=== PATIENT | male | born 1955 | race African-American/Black ===

== ENCOUNTER 2016-07-12 12:32 | Emergency (ER) | payer MEDICAID, OTHER ==
[~2016-07-12] VITALS: Ht 172.7 cm; Wt 99.3 kg
[~2016-07-12 12:32] MED LIST: NORCO 5-325 TA1 EAC1 ORAL; PROMETHAZINE-C118 M1 ORAL; TAMIFLU75 MG ORAL
[2016-07-12 13:03] VITALS: BP 132/82
[2016-07-12] MEDS ORDERED: LISINOPRIL20 MG ORAL (13:09)
[2016-07-12] MEDS ORDERED: SIMVASTATIN20 MG ORAL (13:09)
[2016-07-12] MEDS ORDERED: ASPIRIN81 MG ORAL (13:09)
[2016-07-12] MEDS ORDERED: PRILOSEC OTC20 MG ORAL (13:10)
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
[2016-07-12] MEDS ORDERED: TYLENOL EXTRA500 MG ORAL (13:49)
[2016-07-12 14:10] VITALS: BP 132/82
== END 2016-07-12 14:10 | disposition home or self-care (01) ==
LOC: EMR 13:46
DX: S40.852A Superficial foreign body of left upper arm, initial encounter (principal); Z18.9 Retained foreign body fragments, unspecified material; V49.9XXD Car occupant (driver) (passenger) injured in unspecified traffic accident, subsequent encounter; I10 Essential (primary) hypertension; E11.9 Type 2 diabetes mellitus without complications; X58.XXXA Exposure to other specified factors, initial encounter; Y92.9 Unspecified place or not applicable; Y99.8 Other external cause status
CPT/HCPCS: 99283

== ENCOUNTER 2016-12-07 19:56 | Emergency (ER) | payer OTHER ==
[~2016-12-07] VITALS: Ht 172.7 cm; Wt 98.4 kg
[~2016-12-07 19:56] MED LIST changes: +ASPIRIN81 MG ORAL; +LISINOPRIL20 MG ORAL; +PRILOSEC OTC20 MG ORAL; +SIMVASTATIN20 MG ORAL; +TYLENOL EXTRA500 MG ORAL
[2016-12-07] MEDS ORDERED: METFORMIN HCL1000 M1 ORAL (20:08)
[2016-12-07] MEDS ORDERED: IBUPROFEN600 MG ORAL (21:10)
--- NOTE | 2016-12-07 21:10 | Emergency Room Report ---
History of Present Illness General Chief Complaint: Pain Source: Patient Present Illness HPI 61 yo M no sig pmhx p/w L elbow pain. states that in June of this year he had a piece of glass stuck in the skin of his elbow. Pt states that he never removed it. now stating that x 2-3 days his L elbow has been bothering him, has gotten slightly swollen. he is able to move elbow however states pain with movement. denies any fever chills. Allergies: Coded Allergies: No Known Allergies (Unverified , 04/25/14) Patient History Past Medical History: see triage record Past Surgical History: none Pertinent Family History: none Reviewed Nursing Documentation: PMH: Agreed, PSxH: Agreed Nursing Documentation-PMH Past Medical History: No History, Except For Hx Hypertension: Yes Hx Diabetes: Yes - Type 2 Review of Systems All Other Systems: negative except mentioned in HPI Physical Exam Vital Signs Date Time Temp Pulse Resp B/P (MAP) Pulse Ox O2 Delivery O2 Flow Rate FiO2 12/07/16 20:00 97.5 87 16 121/79 98 Room Air Sp02 EP Interpretation: reviewed, normal General Appearance: normal inspection, well appearing, no apparent distress, alert, non-toxic Head: normocephalic, atraumatic Eyes: bilateral eye normal inspection, bilateral eye PERRL, bilateral eye EOMI ENT: normal ENT inspection, normal pharynx, normal voice, moist mucus membranes Neck: normal inspection, full range of motion, supple Respiratory: normal inspection, lungs clear, normal breath sounds, no respiratory distress, no retraction, no wheezing, speaking full sentences, chest symmetrical Cardiovascular #1: normal inspection, regular rate, rhythm, normal capillary refill Gastrointestinal: normal inspection, non tender, soft, non-distended, no guarding Genitourinary: no CVA tenderness Musculoskeletal: back normal, other - L elbow with mild swelling, no warmth, has full range of motion, no erythema Neurologic: normal inspection, alert, oriented x3, responsive, motor strength/ tone normal, sensory intact, normal gait, speech normal Psychiatric: normal inspection, judgement/insight normal, memory normal Skin: normal inspection, normal color, no rash, warm/dry, well hydrated, normal turgor Medical Decision Making Diagnostic Impression: Primary Impression: Foreign body of elbow, left, superficial ER Course 61 yo M with L elbow pain FB stuck back in june DDX: likely 2/2 to foreign body at this time not c/w septic joint as no fever, chills, no warmth to elbow, and elbow has FROM Plan: pain control XR ER course: XR performed which revealed FB seen in skin superficially pt given motrin with relief of pain Dispo Pt is to be discharged to home. Was instructed to follow up with a general surgeon for removal of FB. Instructed to return to ED if he has fever, chills, increased swelling, or inability to move elbow Last Vital Signs Date Time Temp Pulse Resp B/P (MAP) Pulse Ox O2 Delivery O2 Flow Rate FiO2 12/07/16 20:00 97.5 87 16 121/79 98 Room Air Disposition: HOME, SELF-CARE Condition: Improved Scripts Ibuprofen* (MOTRIN*) 600 Mg Tablet 600 MG ORAL Q8H Y for For Pain, #30 TAB 0 Refills Prov: Abbi Young M.D. 12/07/16 Additional Instructions: You have a foreign body in your left elbow. Please see a general surgeon for possible removal. Please return to the emergency room if you are having high fever chills increased swelling to the area or inability to move her elbow. Please take Motrin for pain. Abbi Young M.D. Dec 07, 2016 21:10
[2016-12-07 21:19] VITALS: BP 121/79
--- NOTE | 2016-12-08 11:36 | Diagnostic Imaging Report ---
Indication: Pain Findings: 3 views of the left elbow were obtained. There is no acute fracture or malalignment. There is trying other foreign body soft tissues of the posterior part of the elbow. Please correlate clinically. No joint effusion seen. Some marginal spurring noted at the elbow joint indicative of mild osteoarthritis. Impression: Posterior radiopaque foreign body. No acute fracture
== END 2016-12-07 21:19 | disposition home or self-care (01) ==
LOC: EMR 20:35
DX: S50.352A Superficial foreign body of left elbow, initial encounter (principal); W45.8XXA Other foreign body or object entering through skin, initial encounter; Y93.9 Activity, unspecified; Y92.9 Unspecified place or not applicable; I10 Essential (primary) hypertension; E11.9 Type 2 diabetes mellitus without complications
CPT/HCPCS: 99283

== ENCOUNTER 2017-04-14 12:08 | Emergency (ER) | payer OTHER ==
[~2017-04-14] VITALS: Ht 172.7 cm; Wt 97.5 kg
[~2017-04-14 12:08] MED LIST changes: +IBUPROFEN600 MG ORAL; +METFORMIN HCL1000 M1 ORAL
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
[2017-04-14] MEDS ORDERED: IBUPROFEN600 MG ORAL (14:06)
[2017-04-14 14:12] VITALS: BP 124/76
--- NOTE | 2017-04-15 11:02 | Diagnostic Imaging Report ---
Indication: Pain Technique: XRAY Ankle Compl Min 3v R Comparison: None Findings: There is bimalleolar soft tissue swelling, greater over the lateral malleolus. Irregularity of the tip of the medial malleolus with adjacent bony density which may represent a tiny chip fracture/avulsion fracture of the medial malleolus. The ankle mortise is intact on these nonstressed views. No ankle joint effusion is seen. Impression: Slight irregularity of the tip of the medial malleolus with adjacent ossific density may represent a small chip/avulsion fracture. Ankle mortise intact on these nonstress views. Correlate clinically.
--- NOTE | 2017-04-15 11:14 | Diagnostic Imaging Report ---
Indication: Pain Technique: XRAY Foot Complete R Comparison: None Findings: There is no acute fracture. There is mild hallux valgus with marked degenerative change at the first metatarsal phalangeal joint with joint space narrowing, subchondral sclerosis and projectives change. No definite bony erosion is seen. There is mild soft tissue swelling without definite mineralization in the soft tissues. Remainder of the joint spaces appear preserved. No radiopaque foreign body seen. Impression: No acute fracture. Mild hallux valgus with degenerative change at the first metatarsophalangeal joint with mild overlying soft tissue prominence. Findings are nonspecific and may be related to a number of arthritides (degenerative/depositional/inflammatory). Clinical correlation recommended.
== END 2017-04-14 14:15 | disposition home or self-care (01) ==
LOC: EMR 13:26
DX: S82.891A Other fracture of right lower leg, initial encounter for closed fracture (principal); I10 Essential (primary) hypertension; E11.9 Type 2 diabetes mellitus without complications; V29.88XA Motorcycle rider (driver) (passenger) injured in other specified transport accidents, initial encounter; Y92.488 Other paved roadways as the place of occurrence of the external cause
CPT/HCPCS: 29515; 99284

== ENCOUNTER 2018-02-11 19:12 | Emergency (ER) | payer OTHER ==
[~2018-02-11] VITALS: Ht 172.7 cm; Wt 101.2 kg
[2018-02-11 19:35] VITALS: BP 150/98
--- NOTE | 2018-02-11 19:47 | Emergency Room Report ---
History of Present Illness General Chief Complaint: Skin Rash/Abscess Source: Patient Present Illness HPI 62-year-old male patient presents ER complaining of a bug bite on his left arm for the past 2 days. Patient reports that he knows he was bit by a bug because he killed it. Reports bug was a "slow, flying black bug". States he does not know what kind of bug. Reports not a spider. reports does not believe up to date on tetanus shot. Reports did not take any medication pain. Reports no drainage. Reports pruritic and painful. Denies fever, chest pain, shortness of breath, vomiting. Denies history of diabetes. Denies contacts with similar symptoms. Reports no drainage from site of injury. Allergies: Coded Allergies: No Known Allergies (Unverified , 04/25/14) Patient History Past Medical History: see triage record Reviewed Nursing Documentation: PMH: Agreed; PSxH: Agreed Nursing Documentation-PMH Past Medical History: No History, Except For Hx Hypertension: Yes - lisinopril 20 mg Hx COPD: Yes Hx Diabetes: Yes - metformin, jenuva Review of Systems All Other Systems: negative except mentioned in HPI Physical Exam Vital Signs Date Time Temp Pulse Resp B/P (MAP) Pulse Ox O2 Delivery O2 Flow Rate FiO2 02/11/18 19:23 97.9 80 20 150/98 98 Room Air Sp02 EP Interpretation: reviewed, normal General Appearance: well appearing, no apparent distress, alert, GCS 15, non- toxic Head: normocephalic, atraumatic Eyes: bilateral eye normal inspection, bilateral eye PERRL ENT: hearing grossly normal, normal pharynx, no angioedema, normal voice, uvula midline, moist mucus membranes Respiratory: lungs clear, normal breath sounds, no rhonchi, no respiratory distress, no accessory muscle use, no wheezing, speaking full sentences Cardiovascular #1: regular rate, rhythm, no edema Cardiovascular #2: 2+ radial (R), 2+ radial (L) Musculoskeletal: back normal, digits/nails normal, gait/station normal, normal range of motion, non-tender Neurologic: alert, oriented x3, responsive, motor strength/tone normal, sensory intact Skin: other - left forearm: 2 cm area of erythema with mild edema consistent with cellulitis, no fluctuance, no drainage, no red streaking, no open wound, no target sign, no central clearing Medical Decision Making PA Attestation Dr. Clark is my supervising Physician whom patient management has been discussed with. Diagnostic Impression: Primary Impression: Cellulitis ER Course Pt. presents to the ED c/o bug bite. Ddx considered but are not limited to rash, cellulitis, abscess, atopic dermatitis, angioedema., allergic reaction, DVT, bug bite. Vital signs: are WNL, pt. is afebrile ER COURSE: Provided with TDAP and pain medication in the ER. physical exam consistent with cellulitis. No fluctuance or induration, no palpable mass consistent with abscess, does not require drainage at this time. ER precautions given. F/u with PCP in 2-3 days for wound check. Do not scratch or itch. Take Tylenol for pain symptoms. DISCHARGE: -Rx provided for Keflex -Rx provided for Hydrocrotisone Rx provided for Tylenol Rx provided for Bacitracin Rx provided for Hydrocortisone Rx provided for loratadine Rx provided for Benadryl At this time pt. is stable for d/c to home. Patient resting comfortably in no acute distress, nontoxic appearing. Will provide printed patient care instructions, and any necessary prescriptions. Patient instructed to complete current course of antibiotics. Care plan and follow up instructions have been discussed with the patient prior to discharge. Patient instructed to follow-up with primary care provider in 3 - 5 days and discuss further referral to mortuary beautician and vascular physician. Patient questions asked and answered. ER precautions given. Patient instructed to return to ER immediately for any new or worsening of symptoms including but not limited to increasing SOB, persistent fever, intractable vomiting, calf pain. - Please note that this Emergency Department Report was dictated using [employer] teacher technology software, occasionally this can lead to erroneous entry secondary to interpretation by the dictation equipment. Last Vital Signs Date Time Temp Pulse Resp B/P (MAP) Pulse Ox O2 Delivery O2 Flow Rate FiO2 02/11/18 19:35 97.9 77 20 150/98 98 Room Air Status: improved Disposition: HOME, SELF-CARE Condition: Stable Scripts Loratadine (LORATADINE) 10 Mg Tab.rapdis 10 MG PO DAILY, #30 TAB Prov: Saulo King 02/11/18 Hydrocortisone (Hydrocortisone Cream 2.5%) Y Cream.appl 1 APPLIC TP BID, #28 GM Prov: Saulo King.Maxwell 02/11/18 Diphenhydramine Hcl* (BENADRYL*) 25 Mg Capsule 25 MG ORAL Q6H PRN for Itching, #30 CAP Prov: Saulo King 02/11/18 Acetaminophen* (TYLENOL EXTRA STRENGTH*) 500 Mg Tablet 500 MG ORAL Q8H PRN for Prn Headache/Temp > 101, #30 TAB 0 Refills Prov: Saulo King 02/11/18 Cephalexin* (KEFLEX*) 500 Mg Capsule 500 MG ORAL EVERY 12 HOURS, #14 CAP 0 Refills Prov: Saulo King 02/11/18 Bacitracin/Polymyxin B Sulfate (BACITRACIN-POLYMYXIN OINTMENT) 28.35 Gm Oint...g. 1 APPLIC TP BID, #28 GM Prov: Saulo King 02/11/18 Patient Instructions: Cellulitis, [id number], Insect Bite, [id number] Additional Instructions: Followup with primary care provider in 3 -5 days. Request referral to dermatology as needed. Do not scratch or itch. Apply warm compresses to affected area. Wash all clothes and bedding. Take medications as directed. Do not apply topical steroid medication to face or skin creases. SE Benadryl drowsiness, do not take prior to drinking, driving, operating heavy machinery. Take Claritin during the day and Benadryl at night for itching symptoms. Patient questions asked and answered. ER precautions given, patient instructed to return to ER immediately for any new or worsening of symptoms. [facility] Saulo King Feb 11, 2018 19:47
[2018-02-11] MEDS ORDERED: BENADRYL25 MG ORAL (19:49)
[2018-02-11] MEDS ORDERED: TYLENOL EXTRA500 MG ORAL (19:49)
[2018-02-11] MEDS ORDERED: CEPHALEXIN500 MG ORAL (19:49)
[2018-02-11] MEDS ORDERED: BACITRACIN-P28.35 GM TP (19:49)
[2018-02-11] MEDS ORDERED: LORATADINE-D 21 EACH PO (19:49)
[2018-02-11] MEDS ORDERED: HYDROCORTISONE30 G2 TP (19:49)
[2018-02-11] MEDS ORDERED: LORATADINE10 M1 PO (19:51)
[2018-02-11] MEDS ORDERED: Tetanus/Diptheria/Pertussis Vaccine 0.5ml Syr IM ONE (20:00)
[2018-02-11] MEDS ORDERED: Ketorolac 30mg Inj IM ONE (20:00)
== END 2018-02-11 20:30 | disposition home or self-care (01) ==
LOC: EMR 20:19
DX: L03.114 Cellulitis of left upper limb (principal); E11.9 Type 2 diabetes mellitus without complications; J44.9 Chronic obstructive pulmonary disease, unspecified; I10 Essential (primary) hypertension; Z79.84 Long term (current) use of oral hypoglycemic drugs; Z79.899 Other long term (current) drug therapy; Z23 Encounter for immunization
CPT/HCPCS: 90471; 90715; 96372; 99283; J1885

== ENCOUNTER 2019-11-16 13:16 | Emergency (ER) | payer OTHER ==
[~2019-11-16] VITALS: Ht 172.7 cm; Wt 102.1 kg
[~2019-11-16 13:16] MED LIST changes: +BACITRACIN-P28.35 GM TP; +BENADRYL25 MG ORAL; +CEPHALEXIN500 MG ORAL; +HYDROCORTISONE30 G2 TP; +LORATADINE-D 21 EACH PO; +LORATADINE10 M1 PO
[2019-11-16 13:57] VITALS: BP 131/72
--- NOTE | 2019-11-16 13:59 | NUR ---
ED Nurse Note: Patient from home walked in due to dry coughing with bodyaches and chills x 4-5 days. Pt states he had covid testing last sunday11/14/19 and pending result. Patient AAO x4, VSS at this time, skin is warm to touch. Patient has even non labored breathing.
--- NOTE | 2019-11-16 14:05 | NUR ---
ED Nurse Note: blood collevted sent to lab
[2019-11-16 14:27] LABS: EOSINOPHILS % (AUTO) 0.3 % (0.0-3.0); HEMATOCRIT 33.8 % (42.0-52.0); HEMOGLOBIN 10.8 G/DL (14.2-18.0); LYMPHOCYTES % (AUTO) 7.8 % (20.0-45.0); MEAN CORPUSCULAR VOLUME 80 FL (80-99); MONOCYTES % (AUTO) 8.6 % (1.0-10.0); NEUTROPHILS % (AUTO) 81.3 % (45.0-75.0); PLATELET COUNT 229 K/UL (150-450); RED BLOOD COUNT 4.21 M/UL (4.70-6.10); WHITE BLOOD COUNT 6.6 K/UL (4.8-10.8)
[2019-11-16 14:41] LABS: ANION GAP 11 mmol/L (5-15); BLOOD UREA NITROGEN 17 mg/dL (7-18); CALCIUM 9.1 MG/DL (8.5-10.1); CARBON DIOXIDE 23 MMOL/L (21-32); CHLORIDE 101 MMOL/L (98-107); CREATININE 1.5 MG/DL (0.55-1.30); POTASSIUM 4.1 MMOL/L (3.5-5.1); SODIUM 135 MMOL/L (136-145)
--- NOTE | 2019-11-16 14:42 | Emergency Room Report ---
History of Present Illness General Chief Complaint: Upper Respiratory Illness Source: Patient, Medical Record Present Illness HPI 64-year-old male with past medical history of high blood pressure hyperlipidemia and diabetes presents to the emergency department complaining of 5 days of persistent cough with feeling weak and having chills. Patient reports he is currently awaiting results for COVID-19 testing. He reports 5/10 in severity body aches that are generalized. Patient denies chest pain, palpitations, headache, dizziness, nausea or vomiting. He reports history of bronchitis once in the past. Patient denies sputum production. He denies swelling of the lower extremities. No other aggravating or relieving factors at this time. Denies fevers. Allergies: Coded Allergies: No Known Allergies (Unverified , 04/25/14) COVID-19 Screening Contact w/high risk pt: No Experienced COVID-19 symptoms?: Yes COVID-19 Testing performed CROSSING [place]: Yes COVID-19 Screening: PUI COVID-19 COVID-19 Testing Source: 11/14/19 Patient History Past Medical History: see triage record Past Surgical History: none Pertinent Family History: none Reviewed Nursing Documentation: PMH: Agreed; PSxH: Agreed Nursing Documentation-PMH Past Medical History: No History, Except For Hx Hypertension: Yes - lisinopril 20 mg Hx COPD: Yes Hx Diabetes: Yes Review of Systems All Other Systems: negative except mentioned in HPI Physical Exam Vital Signs Date Time Temp Pulse Resp B/P (MAP) Pulse Ox O2 Delivery O2 Flow Rate FiO2 11/16/19 13:28 98.2 91 16 131/72 (91) 95 Room Air Sp02 EP Interpretation: reviewed, normal General Appearance: no apparent distress, alert, GCS 15, non-toxic Head: normocephalic, atraumatic Eyes: bilateral eye normal inspection, bilateral eye PERRL ENT: hearing grossly normal, normal voice Neck: full range of motion Respiratory: chest non-tender, lungs clear, normal breath sounds, no respiratory distress, no accessory muscle use, no wheezing, speaking full sentences Cardiovascular #1: regular rate, rhythm, no edema, normal capillary refill Musculoskeletal: back normal, normal range of motion, gait/station normal, non- tender Neurologic: alert, motor strength/tone normal, oriented x3, sensory intact, responsive, speech normal Psychiatric: judgement/insight normal Skin: no rash, normal color Lymphatic: no adenopathy Medical Decision Making PA Attestation Dr. Riddle is my supervising Physician whom patient management has been discussed with. Diagnostic Impression: Primary Impression: Atypical pneumonia Additional Impression: Elevated serum creatinine ER Course 64-year-old male with past medical history of high blood pressure hyperlipidemia and diabetes presents to the emergency department complaining of 5 days of persistent cough with feeling weak and having chills. Patient reports he is currently awaiting results for COVID-19 testing. He reports 5/10 in severity body aches that are generalized. Patient denies chest pain, palpitations, headache, dizziness, nausea or vomiting. He reports history of bronchitis once in the past. Patient denies sputum production. He denies swelling of the lower extremities. No other aggravating or relieving factors at this time. Denies fevers. Ddx considered but are not limited to URI, pneumonia, PE, strep pharyngitis, meningitis, COVID-19 Vital signs: Pt.is afebrile VS are WNL H&PE are most consistent with bronchitis -- Pt. non-toxic in appearance, NAD. Not demonstrating signs of resp. distress. ORDERS: -EK nsr -CBC: WNL -BMP : * Elevated Cr. 1.5, otherwise WNL -Troponin: 0.00 -CXR: WNL ED INTERVENTIONS: None required at this time. DISCHARGE: At this time pt. is stable for d/c to home. Will provide printed patient care instructions, and any necessary prescriptions. Care plan and follow up instructions have been discussed with the patient prior to discharge. Labs Test 11/16/19 14:15 White Blood Count 6.6 K/UL (4.8-10.8) Red Blood Count 4.21 M/UL (4.70-6.10) Hemoglobin 10.8 G/DL (14.2-18.0) Hematocrit 33.8 % (42.0-52.0) Mean Corpuscular Volume 80 FL (80-99) Mean Corpuscular Hemoglobin 25.7 PG (27.0-31.0) Mean Corpuscular Hemoglobin Concent 32.0 G/DL (32.0-36.0) Red Cell Distribution Width 13.0 % (11.6-14.8) Platelet Count 229 K/UL (150-450) Mean Platelet Volume 6.3 FL (6.5-10.1) Neutrophils (%) (Auto) 81.3 % (45.0-75.0) Lymphocytes (%) (Auto) 7.8 % (20.0-45.0) Monocytes (%) (Auto) 8.6 % (1.0-10.0) Eosinophils (%) (Auto) 0.3 % (0.0-3.0) Basophils (%) (Auto) 2.0 % (0.0-2.0) Sodium Level 135 MMOL/L (136-145) Potassium Level 4.1 MMOL/L (3.5-5.1) Chloride Level 101 MMOL/L (98-107) Carbon Dioxide Level 23 MMOL/L (21-32) Anion Gap 11 mmol/L (5-15) Blood Urea Nitrogen 17 mg/dL (7-18) Creatinine 1.5 MG/DL (0.55-1.30) Estimat Glomerular Filtration Rate 57.4 mL/min (>60) Glucose Level 114 MG/DL (74-106) Calcium Level 9.1 MG/DL (8.5-10.1) Troponin I 0.000 ng/mL (0.000-0.056) EKG Diagnostic Results Rate: normal - 81 Rhythm: NSR ST Segments: no acute changes ASA given to the pt in ED: No PA Scribe Text This Interpretation was scribed by AMY Villarreal. Chest X-Ray Diagnostic Results Chest X-Ray Diagnostic Results : Chest X-Ray Ordered: Yes # of Views/Limited/Complete: 1 View Indication: Chest Pain AMY Xray: Interpretation reviewed, by supervising MD, and agrees with findings. Interpretation: no consolidation, no effusion, no pneumothorax, no acute cardiopulmonary disease Impression: No acute disease Electronically Signed by: Steph Villarreal PA-C Last Vital Signs Date Time Temp Pulse Resp B/P (MAP) Pulse Ox O2 Delivery O2 Flow Rate FiO2 11/16/19 13:57 91 16 Room Air 11/16/19 13:57 98.2 131/72 95 Status: improved Disposition: HOME, SELF-CARE Condition: Stable Scripts Albuterol Sulfate* (ALBUTEROL SULFATE HHN*) 2.5 Mg/3 Ml Vial.neb 3 ML INH THREE TIMES A DAY, #30 EA 0 Refills Prov: Steph Villarreal 11/16/19 Azithromycin* (ZITHROMAX*) 250 Mg Tablet 250 MG ORAL DAILY, #6 TAB 0 Refills Take two tables once daily for 1 day, then one tablet once daily for 4 days. Prov: Steph Villarreal 11/16/19 D-Methorphan Hb/Prometh Hcl* (PROMETHAZINE-DM SYRUP*) 118 Ml Syrup 5 ML ORAL Q6H PRN for For Cough, #120 ML 0 Refills Prov: Steph Villarreal 11/16/19 Referrals: NON PHYSICIAN (PCP) Patient Instructions: Upper Respiratory Infection, Adult Additional Instructions: Take medications as directed. Follow up with a Primary Care Provider in 3-5 days, even if your symptoms have resolved. FOLLOW UP REGARDING YOUR ELEVATED CREATINE / THIS REPRESENTS DECLINING KIDNEY FUNCTION IN THE PRESENCE OF DIABETES. --Please review list of primary care clinics, if you do not already have a primary care provider Return sooner to ED if new symptoms occur, or current symptoms become worse. - Please note that this Emergency Department Report was dictated using [employer] supervisor technology software, occasionally this can lead to erroneous entry secondary to interpretation by the dictation equipment. Steph Villarreal Nov 16, 2019 14:42
[2019-11-16] MEDS ORDERED: ZITHROMAX250 MG ORAL ×2 (15:17→15:18)
[2019-11-16] MEDS ORDERED: ALBUTEROL2.5 MG/3 M INH ×2 (15:17→15:18)
[2019-11-16] MEDS ORDERED: PROMETHAZINE-D118 ML ORAL (15:18)
[2019-11-16 15:28] VITALS: BP 131/72
--- NOTE | 2019-11-16 15:29 | NUR ---
ER DISCHARGE NOTE: Patient is cleared to be discharged per ERMD, pt is aox4, on room air, with stable vital signs. pt was given dc and prescription instructions, pt was able to verbalize understanding, pt id band and iv site removed without complications. pt is able to ambulate with steady gait. pt took all belongings.
--- NOTE | 2019-11-16 16:21 | Diagnostic Imaging Report ---
EXAM: XR Chest, 1 View CLINICAL HISTORY: PAIN TECHNIQUE: Frontal view of the chest. COMPARISON: No relevant prior studies available. FINDINGS: Lungs: Unremarkable. No consolidation. Pleural space: Unremarkable. No pneumothorax. Heart: Unremarkable. No cardiomegaly. Mediastinum: Unremarkable. Bones/joints: Degenerative changes. IMPRESSION: No evidence of acute pulmonary disease.
== END 2019-11-16 15:29 | disposition home or self-care (01) ==
LOC: EMR 13:47
DX: J18.9 Pneumonia, unspecified organism (principal); R79.89 Other specified abnormal findings of blood chemistry; I10 Essential (primary) hypertension; J44.9 Chronic obstructive pulmonary disease, unspecified; E11.9 Type 2 diabetes mellitus without complications
CPT/HCPCS: 36415; 71045; 80048; 84484; 85025; 93005; Z7502; 99283